=== PATIENT | female | born 1970 | race Two or more races ===

== ENCOUNTER 2024-12-16 07:44 | Emergency (ER) | payer OTHER ==
[~2024-12-16] VITALS: Ht 167.6 cm; Wt 90.7 kg
[2024-12-16] MEDS ORDERED: KETOROLAC TROMETHAMINE 30 MG VIAL IM STA (08:50)
[2024-12-16] MEDS ORDERED: ORPHENADRINE CITRATE 30 MG/ML AMPUL IM STA (08:51)
== END 2024-12-16 10:33 | disposition home or self-care (01) ==
LOC: ER 07:44
DX: M54.50 Low back pain, unspecified (principal)